=== PATIENT | male | born 1990 | race Caucasian/White ===

== ENCOUNTER 2021-03-22 08:34 | Emergency (ER) | payer SELFPAY ==
[2021-03-22] MEDS ORDERED: Morphine 10 MG/ML VIAL ONE (09:03)
[2021-03-22] MEDS ORDERED: Sodium Chloride 0.9% 2,000 ML ONE (09:04)
[2021-03-22] MEDS ORDERED: Ondansetron PF 4 MG/2 ML Vial ONE (09:04)
[2021-03-22] MEDS ORDERED: Acetaminophen 500 MG TAB ONE (09:06)
[2021-03-22 09:24] LABS: ALT (SGPT) 60 U/L (8-55); AST (SGOT) 42 U/L (5-34); Albumin 4.3 g/dL (3.5-5.0); Alkaline Phosphatase 64 U/L (40-110); Anion Gap 15 mmol/L (10-20); BUN (Urea Nitrogen) 12 mg/dL (8.9-20.6); Bilirubin, Total 0.6 mg/dL (0.2-1.2); Calc. Creatinine Clearance 0 mL/min (70-130); Calcium 9.1 mg/dL (7.8-10.44); Carbon Dioxide 18 mmol/L (22-29); Chloride 109 mmol/L (98-107); Globulin 3.5 g/dL (2.4-3.5); Glucose 101 mg/dL (70-105); Lipase 46 U/L (8-78); Potassium 3.9 mmol/L (3.5-5.1); Protein, Total 7.8 g/dL (6.0-8.3); Sodium 138 mmol/L (136-145)
[2021-03-22 09:28] LABS: Band 8 % (5-11); Eosinophils 1 % (0-10); Hemoglobin 16.6 g/dL (14.0-18.0); Lymphocytes 26 % (21-51); MDiff Complete? YES; Mean Corpuscular Hemoglobin 28.1 pg (27.0-31.0); Mean Corpuscular Volume 87.6 fL (78.0-98.0); Mean Platelet Volume 6.3 fL (7.4-10.4); Monocytes 6 % (0-10); Neutrophil 58 % (42-75); Platelet Count 303 thou/uL (130-400); Platelet Morphology Comment Appears Adequate; RBC Distribution Width 11.5 % (11.5-14.5); Reactive Lymphocytes 1 % (0-10); Red Blood Cell (RBC) Count 5.91 mill/uL (4.70-6.10); White Blood Cell (WBC) Count 9.9 thou/uL (4.8-10.8)
[2021-03-22] MEDS ORDERED: Ketorolac Tromethamine 30 MG/ML VIAL ONE (11:16)
[2021-03-22] MEDS ORDERED: predniSONE 20 MG TAB ONE (11:16)
[2021-03-22 20:37] LABS: SARS-CoV-2 PCR by NAA Not Detected (NotDetected)
== END 2021-03-22 11:40 | disposition home or self-care (01) ==
LOC: MADERS 08:34
DX: B34.9 Viral infection, unspecified (principal); Z20.822 Contact with and (suspected) exposure to COVID-19; Z87.891 Personal history of nicotine dependence
CPT/HCPCS: 71045; 80053; 83605; 83690; 83880; 84484; 85025; 87040; 93005; 96374; 96375; J1885; J2270; J2405; J7050; J7512; U0003; U0005

== ENCOUNTER 2021-06-03 22:52 | Emergency (ER) | payer SELFPAY ==
[2021-06-03] MEDS ORDERED: Ketorolac Tromethamine 30 MG/ML VIAL ONE (23:39)
[2021-06-03] MEDS ORDERED: Ondansetron PF 4 MG/2 ML Vial ONE (23:39)
== END 2021-06-04 00:08 | disposition left against medical advice (07) ==
LOC: MADERS 22:52
DX: R50.9 Fever, unspecified (principal); M79.10 Myalgia, unspecified site; Z87.891 Personal history of nicotine dependence
CPT/HCPCS: 71045; 96374; 96375; J1885; J2405

== ENCOUNTER 2021-09-06 11:40 | Emergency (ER) | payer SELFPAY ==
[2021-09-06] MEDS ORDERED: Morphine 4 MG/ML VIAL ONE (12:44)
[2021-09-06] MEDS ORDERED: diphenhydrAMINE 50 MG/ML VIAL ONE (12:45)
[2021-09-06 13:02] LABS: Bilirubin Negative (Negative); Blood, Urine Negative (Negative); Clarity Clear (Clear); Glucose, Urine (Dipstick) Negative (Negative); Ketone, Urine Negative (Negative); Leukocyte Negative (Negative); Nitrite Negative (Negative); Protein, Urine (Dipstick) Negative (Neg-Trace); pH, Urine 8.5 (5.0-9.0)
[2021-09-06 13:11] LABS: ALT (SGPT) 54 U/L (8-55); AST (SGOT) 32 U/L (5-34); Albumin 4.4 g/dL (3.5-5.0); Alkaline Phosphatase 67 U/L (40-110); Anion Gap 13 mmol/L (10-20); BUN (Urea Nitrogen) 10 mg/dL (8.9-20.6); Bilirubin, Total 0.4 mg/dL (0.2-1.2); Calc. Creatinine Clearance 0 mL/min (70-130); Calcium 9.4 mg/dL (7.8-10.44); Carbon Dioxide 21 mmol/L (22-29); Chloride 109 mmol/L (98-107); Globulin 3.4 g/dL (2.4-3.5); Glucose 87 mg/dL (70-105); Potassium 3.8 mmol/L (3.5-5.1); Protein, Total 7.8 g/dL (6.0-8.3); Sodium 139 mmol/L (136-145)
[2021-09-06 13:34] LABS: #Basophils 0.1 thou/uL (0.0-0.2); #Eosinphils 0.3 thou/uL (0.0-0.7); #Lymphocytes 3.4 thou/uL (1.20-3.40); #Monocytes 0.7 thou/uL (0.11-0.59); %Eosinophils 3.1 % (0.0-10.0); %Lymphocytes 35.7 % (21.0-51.0); %Monocytes 7.5 % (0.0-10.0); %Neutrophils 52.8 % (42.0-75.0); Hemoglobin 15.5 g/dL (14.0-18.0); Mean Corpuscular HGB CONC 31.3 g/dL (32.0-36.0); Mean Corpuscular Hemoglobin 27.7 pg (27.0-31.0); Mean Corpuscular Volume 88.4 fL (78.0-98.0); Mean Platelet Volume 6.9 fL (7.4-10.4); Platelet Count 312 thou/uL (130-400); RBC Distribution Width 12.5 % (11.5-14.5); White Blood Cell (WBC) Count 9.5 thou/uL (4.8-10.8)
== END 2021-09-06 13:07 | disposition short-term general hospital (02) ==
LOC: MADERS 11:40
DX: N50.811 Right testicular pain (principal); N43.3 Hydrocele, unspecified; F17.290 Nicotine dependence, other tobacco product, uncomplicated
CPT/HCPCS: 76870; 80053; 81003; 85025; 93976; 96374; 96375; J1200; J2270

== ENCOUNTER 2021-11-08 08:45 | Emergency (ER) | payer SELFPAY ==
[2021-11-08] MEDS ORDERED: Tetracaine 0.5% PF 4 ML BOT ONE (09:01)
[2021-11-08] MEDS ORDERED: Lactated Ringer's 1,000 ML ONE ×2 (09:30→10:56)
[2021-11-08] MEDS ORDERED: diphenhydrAMINE 50 MG/ML VIAL ONE (09:30)
[2021-11-08] MEDS ORDERED: Prochlorperazine 10 MG/2 ML VIAL ONE (09:30)
[2021-11-08 09:57] LABS: #Basophils 0.1 thou/uL (0.0-0.2); #Eosinphils 0.2 thou/uL (0.0-0.7); #Lymphocytes 2.5 thou/uL (1.20-3.40); #Monocytes 0.5 thou/uL (0.11-0.59); #Neutrophils 3.7 thou/uL (1.40-6.50); %Basophils 1.5 % (0.0-1.0); %Eosinophils 2.5 % (0.0-10.0); %Lymphocytes 35.5 % (21.0-51.0); %Neutrophils 53.6 % (42.0-75.0); Hemoglobin 14.2 g/dL (14.0-18.0); Mean Corpuscular Hemoglobin 28.5 pg (27.0-31.0); Mean Corpuscular Volume 86.3 fL (78.0-98.0); Mean Platelet Volume 6.7 fL (7.4-10.4); Platelet Count 275 thou/uL (130-400); Red Blood Cell (RBC) Count 4.98 mill/uL (4.70-6.10)
[2021-11-08 10:04] LABS: PTT 31.3 sec (22.9-36.1); Prothrombin Time 12.7 sec (12.0-14.7)
[2021-11-08 10:12] LABS: ALT (SGPT) 37 U/L (8-55); AST (SGOT) 24 U/L (5-34); Albumin 4.4 g/dL (3.5-5.0); Alkaline Phosphatase 62 U/L (40-110); Anion Gap 14 mmol/L (10-20); BUN (Urea Nitrogen) 10 mg/dL (8.9-20.6); Bilirubin, Total 0.5 mg/dL (0.2-1.2); Calc. Creatinine Clearance 0 mL/min (70-130); Calcium 9.3 mg/dL (7.8-10.44); Carbon Dioxide 17 mmol/L (22-29); Chloride 113 mmol/L (98-107); Estimated GFR 119; Globulin 2.8 g/dL (2.4-3.5); Glucose 90 mg/dL (70-105); Protein, Total 7.2 g/dL (6.0-8.3); Sodium 140 mmol/L (136-145)
[2021-11-08] MEDS ORDERED: Magnesium 2 GM/50 ML BAG (IN WATER) ONE (10:17)
[2021-11-08] MEDS ORDERED: methylPREDNISolone Sod Succ/PF 125 MG/2 ML VIAL ONE (10:17)
[2021-11-08] MEDS ORDERED: Sodium Chloride 0.9% 250 ML 0 ML ONE (10:42)
[2021-11-08] MEDS ORDERED: Valproate Sodium 500 MG/5 ML VIAL ONE (10:42)
== END 2021-11-08 11:45 | disposition home or self-care (01) ==
LOC: MADERS 08:45
DX: R51.9 Headache, unspecified (principal); H53.8 Other visual disturbances; R29.702 NIHSS score 2; Z87.891 Personal history of nicotine dependence; Z79.899 Other long term (current) drug therapy
CPT/HCPCS: 70450; 71045; 80053; 85025; 85610; 85730; 86140; 94760; 96365; 96375; J0780; J1200; J2930; J3475; J7050; J7120

== ENCOUNTER 2021-12-18 12:34 | Emergency (ER) | payer SELFPAY | END 2021-12-18 13:05 | disposition home or self-care (01) | LOC: MADERS 12:34 | DX: K02.9 Dental caries, unspecified (principal) | CPT/HCPCS: 99282 ==

== ENCOUNTER 2023-04-08 11:07 | Emergency (ER) | payer SELFPAY ==
[2023-04-08] MEDS ORDERED: Lorazepam 2 MG/ML VIAL ONE (11:15)
[2023-04-08] MEDS ORDERED: Sodium Chloride 0.9% 1,000 ML ONE (11:44)
[2023-04-08 11:52] LABS: #Basophils 0.1 thou/uL (0.0-0.2); #Eosinphils 0.2 thou/uL (0.0-0.7); #Lymphocytes 2.3 thou/uL (1.20-3.40); #Monocytes 0.5 thou/uL (0.11-0.59); #Neutrophils 3.3 thou/uL (1.40-6.50); %Basophils 1.5 % (0.0-1.0); %Eosinophils 2.6 % (0.0-10.0); %Lymphocytes 36.7 % (21.0-51.0); %Monocytes 7.3 % (0.0-10.0); %Neutrophils 51.9 % (42.0-75.0); Hematocrit 45.2 % (42.0-52.0); Hemoglobin 14.5 g/dL (14.0-18.0); Mean Corpuscular HGB CONC 32.1 g/dL (32.0-36.0); Mean Corpuscular Hemoglobin 29.1 pg (27.0-31.0); Mean Corpuscular Volume 90.5 fl (78.0-98.0); Mean Platelet Volume 6.1 fL (7.4-10.4); Platelet Count 299 10x3/uL (130-400); RBC Distribution Width 11.8 % (11.5-14.5); Red Blood Cell (RBC) Count 4.99 mill/uL (4.70-6.10); White Blood Cell (WBC) Count 6.3 10x3/uL (4.8-10.8)
[2023-04-08 12:08] LABS: Base Excess-Venous 2.2 mmol/L (-2.0 to 3.0); Bicarbonate (HCO3v) 20.1 mmol/L (22.0-28.0); CO2 Tension (PvCO2) 18.3 mmHg (42.0-51.0); Calcium, Ionized 1.11 mmol/L (1.15-1.33); Chloride 112 mmol/L (98-107); Hemoglobin - Calc 15.7 g/dL (14.0-18.0); Sodium 141 mmol/L (138-145); T. Carbon Dioxide 20.6 mmol/L (22.0-28.0); vO2 Saturation-calc 99.9 % (60.0-85.0)
[2023-04-08 12:11] LABS: Amphetamine Not Detected (NotDetected); Barbiturates Screen Not Detected (NotDetected); Benzodiazepine Screen Not Detected (NotDetected); Cocaine Metabolite Screen Not Detected (NotDetected); Methadone Not Detected (NotDetected); Methamphetamine Not Detected (NotDetected); Opiate Screen Not Detected (NotDetected); Oxycodone Screen Not Detected (NotDetected); Phencyclidine (PCP) Not Detected (NotDetected); THC/Cannabinoid Screen Not Detected (NotDetected); Tricyclic Screen Not Detected (NotDetected)
[2023-04-08 12:12] LABS: ALT (SGPT) 18 U/L (8-55); AST (SGOT) 24 U/L (5-34); Albumin 4.3 g/dL (3.5-5.0); Alkaline Phosphatase 66 U/L (40-110); Anion Gap 16 mmol/L (10-20); BUN (Urea Nitrogen) 11 mg/dL (8.9-20.6); Bilirubin, Total 0.4 mg/dL (0.2-1.2); Calc. Creatinine Clearance 0 mL/min (70-130); Calcium 9.3 mg/dL (7.8-10.44); Carbon Dioxide 16 mmol/L (22-29); Chloride 111 mmol/L (98-107); Estimated GFR 116; Glucose 98 mg/dL (70-105); Potassium 4.4 mmol/L (3.5-5.1); Protein, Total 7.3 g/dL (6.0-8.3); Sodium 139 mmol/L (136-145)
[2023-04-08 12:16] LABS: Acetaminophen Less than 10 mcg/mL (10.0-30.0); Alcohol Less than 10.0 mg/dL (Less than 10); Salicylate Less than 8.0 mg/dL (15.0-30.0)
[2023-04-08] MEDS ORDERED: diphenhydrAMINE 50 MG/ML VIAL ONE (12:18)
[2023-04-08] MEDS ORDERED: Metoclopramide HCl 10 MG/2 ML VIAL ONE (12:18)
[2023-04-08] MEDS ORDERED: Ketorolac Tromethamine 30 MG/ML VIAL ONE (12:18)
== END 2023-04-08 12:58 | disposition home or self-care (01) ==
LOC: MADERS 11:07
DX: R51.9 Headache, unspecified (principal); E87.3 Alkalosis
CPT/HCPCS: 70450; 80053; 80306; 80307; 82330; 82803; 83735; 85025; 87804; 93005; 96361; 96372; 96374; 96375; J1200; J1885; J2060; J2765; J7050

== ENCOUNTER 2024-01-06 07:01 | Emergency (ER) | payer SELFPAY ==
[2024-01-06] MEDS ORDERED: Ondansetron ODT 4 MG TAB ONE (07:37)
== END 2024-01-06 07:45 | disposition home or self-care (01) ==
LOC: MADERS 07:01
DX: K52.9 Noninfective gastroenteritis and colitis, unspecified (principal); I10 Essential (primary) hypertension; F17.290 Nicotine dependence, other tobacco product, uncomplicated
CPT/HCPCS: 99283; Q0162

== ENCOUNTER 2024-04-25 18:48 | Emergency (ER) | payer SELFPAY ==
[2024-04-25] MEDS ORDERED: Ondansetron PF 4 MG/2 ML Vial ONE (19:14)
[2024-04-25] MEDS ORDERED: Sodium Chloride 0.9% 1,000 ML ONE (19:14)
[2024-04-25] MEDS ORDERED: Ondansetron ODT 4 MG TAB ONE (19:44)
[2024-04-25 19:45] LABS: Bacteria/HPF Rare-Few HPF (None Seen); Bilirubin Negative (Negative); Blood, Urine Negative (Negative); CAUTI Indications for Culture Pelvic or flank pain; Clarity Clear (Clear); Glucose, Urine (Dipstick) Negative (Negative); Ketone, Urine Negative (Negative); Leukocyte Negative (Negative); Nitrite Negative (Negative); Protein, Urine (Dipstick) Negative (Neg-Trace); RBC/HPF 0-3 HPF (0-3); Squamous Epithelial 0-3 HPF (0-3); Urine Culture Reflex No No; Urobilinogen 0.2 mg/dL (Less than 2); WBC/HPF 0-3 HPF (0-3)
[2024-04-25 19:51] LABS: Amphetamine Not Detected (NotDetected); Barbiturates Screen Not Detected (NotDetected); Benzodiazepine Screen Not Detected (NotDetected); Cocaine Metabolite Screen Not Detected (NotDetected); Methadone Not Detected (NotDetected); Methamphetamine Not Detected (NotDetected); Opiate Screen Not Detected (NotDetected); Oxycodone Screen Not Detected (NotDetected); Phencyclidine (PCP) Not Detected (NotDetected); THC/Cannabinoid Screen Not Detected (NotDetected); Tricyclic Screen Not Detected (NotDetected)
== END 2024-04-25 20:09 | disposition home or self-care (01) ==
LOC: MADERS 18:48
DX: R11.2 Nausea with vomiting, unspecified (principal); R19.7 Diarrhea, unspecified; F17.290 Nicotine dependence, other tobacco product, uncomplicated
CPT/HCPCS: 80306; 81001; 87428; 99284; J2405; J7030; Q0162

== ENCOUNTER 2024-06-07 07:31 | Emergency (ER) | payer SELFPAY | END 2024-06-07 08:17 | disposition home or self-care (01) | LOC: MADERS 07:31 | DX: J06.9 Acute upper respiratory infection, unspecified (principal); R11.0 Nausea | CPT/HCPCS: 87081; 87428; 87430; 99283 ==

== ENCOUNTER 2024-12-22 08:00 | Emergency (ER) | payer SELFPAY ==
[2024-12-22] MEDS ORDERED: Dicyclomine 10 MG CAP ONE (08:27)
[2024-12-22] MEDS ORDERED: Diphenoxylate HCl/Atropine Tablet ONE ×2 (08:27→08:28)
== END 2024-12-22 09:10 | disposition home or self-care (01) ==
LOC: MADERS 08:00
DX: K52.9 Noninfective gastroenteritis and colitis, unspecified (principal); F17.290 Nicotine dependence, other tobacco product, uncomplicated; R56.9 Unspecified convulsions; Z75.3 Unavailability and inaccessibility of health-care facilities
CPT/HCPCS: 94760; 99283; Q0162

== ENCOUNTER 2025-01-09 07:08 | Emergency (ER) | payer SELFPAY ==
[2025-01-09 08:16] LABS: #Basophils 0.1 thou/uL (0.0-0.2); #Eosinophils 0.4 thou/uL (0.0-0.7); #Lymphocytes 2.4 thou/uL (1.20-3.40); #Monocytes 0.6 thou/uL (0.11-0.59); #Neutrophils 3.4 thou/uL (1.40-6.50); %Basophils 1.0 % (0.0-1.0); %Eosinophils 5.2 % (0.0-10.0); %Lymphocytes 35.8 % (21.0-51.0); %Monocytes 8.4 % (0.0-10.0); %Neutrophils 49.6 % (42.0-75.0); Hematocrit 44.1 % (42.0-52.0); Hemoglobin 14.8 g/dL (14.0-18.0); Mean Corpuscular Hemoglobin 29.0 pg (27.0-31.0); Mean Corpuscular Volume 86.4 fl (78.0-98.0); Platelet Count 347 10x3/uL (130-400); Red Blood Cell (RBC) Count 5.11 mill/uL (4.70-6.10); White Blood Cell (WBC) Count 6.8 10x3/uL (4.8-10.8)
[2025-01-09 08:28] LABS: Glucose, Urine (Dipstick) Negative (Negative); Leukocyte Negative (Negative); Protein, Urine (Dipstick) Trace mg/dL (Neg-Trace); RBC/HPF 0-3 HPF (0-3); Specific Gravity, Urine 1.020 (1.005-1.030)
[2025-01-09 08:29] LABS: Bacteria/HPF Rare-Few HPF (None Seen); CAUTI Indications for Culture Dysuria,urgency,freq; WBC/HPF 0-3 HPF (0-3)
[2025-01-09 08:30] LABS: Urine Culture Reflex No No
[2025-01-09 08:32] LABS: ALT (SGPT) 63 U/L (Less than 45); AST (SGOT) 43 U/L (11-34); Albumin 4.2 g/dL (3.1-4.5); Alkaline Phosphatase 56 U/L (40-110); Anion Gap 15 mmol/L (10-20); BUN (Urea Nitrogen) 11 mg/dL (8.9-20.6); Bilirubin, Total 0.5 mg/dL (0.3-1.2); Calc. Creatinine Clearance 0 mL/min (70-130); Calcium 8.9 mg/dL (7.8-10.44); Carbon Dioxide 18 mmol/L (22-29); Chloride 110 mmol/L (98-107); Globulin 3.1 g/dL (2.4-3.5); Glucose 100 mg/dL (70-105); Potassium 3.9 mmol/L (3.5-5.1); Sodium 139 mmol/L (136-145)
[2025-01-10 03:41] LABS: Chlam.trachomatis by PCR,Urine Not Detected (NotDetected); GC N.gonorrhoeae PCR,UrineVOID Not Detected (NotDetected)
== END 2025-01-09 09:00 | disposition home or self-care (01) ==
LOC: MADERS 07:08
DX: N41.0 Acute prostatitis (principal); R74.01 Elevation of levels of liver transaminase levels; F17.290 Nicotine dependence, other tobacco product, uncomplicated
CPT/HCPCS: 36415; 51798; 74176; 80053; 81001; 85025; 87086; 87491; 87591; J7030

== ENCOUNTER 2025-03-04 01:18 | Emergency (ER) | payer SELFPAY ==
[2025-03-04] MEDS ORDERED: Acetaminophen 500 MG TAB ONE (01:44)
== END 2025-03-04 01:58 | disposition home or self-care (01) ==
LOC: MADERS 01:18
DX: R56.9 Unspecified convulsions (principal); R50.9 Fever, unspecified; F17.290 Nicotine dependence, other tobacco product, uncomplicated; Z75.3 Unavailability and inaccessibility of health-care facilities
CPT/HCPCS: 99283

== ENCOUNTER 2025-04-22 03:34 | Emergency (ER) | payer SELFPAY | END 2025-04-22 04:16 | disposition home or self-care (01) | LOC: MADERS 03:34 | DX: R11.2 Nausea with vomiting, unspecified (principal); R19.7 Diarrhea, unspecified; F17.290 Nicotine dependence, other tobacco product, uncomplicated | CPT/HCPCS: 87428; 99284; Q0162 ==